=== PATIENT | female | born 1985 | race American Indian/Alaskan Native ===

== ENCOUNTER 2018-07-30 09:15 | Emergency (ER) | payer SELFPAY ==
[2018-07-30 10:31] LABS: BUN/Creatinine Ratio 20; Blood Urea Nitrogen 16 mg/dL (7-17); Calcium 9.3 mg/dL (8.4-10.2); Hemolysis Index 7
[2018-07-30 10:34] LABS: Basophils % (Auto) 0.4 % (0.0-1.8); Eosinophils # (Auto) 0.3 K/mm3 (0.0-0.4); Eosinophils % (Auto) 2.7 % (0.0-4.3); Hematocrit 38.5 % (30.3-42.9); Hemoglobin 12.7 gm/dl (10.1-14.3); Lymphocytes # (Auto) 2.8 K/mm3 (1.2-5.4); Lymphocytes % (Auto) 23.7 % (13.4-35.0); Mean Corpuscular HGB Conc 33 % (30-34); Mean Corpuscular Volume 92 fl (79-97); Monocytes # (Auto) 0.8 K/mm3 (0.0-0.8); Monocytes % (Auto) 6.4 % (0.0-7.3); Platelet Count 280 K/mm3 (140-440); Red Blood Count 4.19 M/mm3 (3.65-5.03); Red Cell Distribution Width 13.2 % (13.2-15.2)
[2018-07-30 10:38] LABS: Bacteria,Urine 2+ /HPF (Negative); Bilirubin,Urine NEG (Negative); Blood,Urine MOD (Negative); Color,Urine Yellow (Yellow); Mucus,Urine 1+ /HPF; Protein,Urine <15 mg/dL mg/dL (Negative); Urobilinogen,Urine < 2.0 mg/dL (<2.0)
[2018-07-30] MEDS ORDERED: TORADOL IV ONE (11:23)
[2018-07-30] MEDS ORDERED: XYLOCAINE CARDIAC IV ONE (11:23)
[2018-07-30] MEDS ORDERED: DILAUDID IV ONE (11:23)
[2018-07-30] MEDS ORDERED: NACL 0.9% 1000 ML 1,000 ML IV ONE (11:23)
[2018-07-30] MEDS ORDERED: ROCEPHIN 1,000 MG in NACL 0.9% 50 ML IV STA (11:23)
--- NOTE | 2018-07-30 11:25 | Emergency Department Report ---
ED General Adult HPI - General Chief complaint: Abdominal Pain Stated complaint: LT SIDE PAIN Time Seen by Provider: 07/30/18 11:04 Source: patient Mode of arrival: Ambulatory Limitations: No Limitations - History of Present Illness Initial comments: This is a 33-year-old female who is not known to this provider previously. In the past, the patient has seen Dr. Wm Robin, of [place] [facility]. Her past medical history includes kidney stone, history of left-sided stent, stent removal September,, and irregular menstruation. She presents to the em ergency room with complaint of nontraumatic left-sided flank pain, which radius down to her suprapubic region. There is urinary pressure, but no dysuria. There is nausea, but no vomiting. The patient denies fevers, denies chills. She denies hematemesis, bright red blood per rectum. Patient reports that symptoms today feel similar to prior episodes of nephrolithiasis. Patient denies headache, neck pain, chest pain, extremity weakness, numbness, hematemesis, bright red blood per rectum. -: Gradual Location: abdomen Radiation: periumbillical, flank Severity scale (0 -10): 8 Quality: aching Consistency: intermittent Improves with: medication, rest Worsens with: movement Associated Symptoms: denies: confusion, chest pain, cough, diaphoresis, fever/chills, headaches, loss of appetite, malaise, rash, seizure, shortness of breath, syncope, weakness - Related Data Previous Rx's Medication Instructions Recorded Last Taken Type Acetaminophen [Tylenol Arthritis] 650 mg PO Q6HR PRN #30 tablet.er 07/30/18 Unknown Rx Ibuprofen [Motrin] 600 mg PO Q8H PRN #30 tablet 07/30/18 Unknown Rx Metoclopramide [Reglan] 10 mg PO Q6HR PRN #15 tab 07/30/18 Unknown Rx levoFLOXacin [Levaquin] 750 mg PO QDAY #10 tablet 07/30/18 Unknown Rx Allergies Allergy/AdvReac Type Severity Reaction Status Date / Time eggs Allergy Hives Uncoded 07/30/18 09:23 peanuts Allergy Hives Uncoded 07/30/18 09:23 ED Review of Systems ROS: Stated complaint: LT SIDE PAIN Other details as noted in HPI Constitutional: malaise. denies: fever Eyes: denies: vision change ENT: denies: epistaxis Respiratory: denies: cough Cardiovascular: denies: chest pain Gastrointestinal: abdominal pain, nausea. denies: vomiting Genitourinary: frequency. denies: urgency, dysuria Musculoskeletal: back pain Skin: denies: lesions Neurological: denies: weakness Psychiatric: denies: anxiety ED Past Medical Hx - Past Medical History Previous Medical History?: Yes Hx Kidney Stones: Yes (stent x1, L kidney 2018) Additional medical history: irreg cycles - Surgical History Past Surgical History?: Yes Additional Surgical History: L renal stent x1, 2018 - Social History Smoking Status: Current Every Day Smoker Substance Use Type: None - Medications Home Medications: Home Medications Medication Instructions Recorded Confirmed Last Taken Type Acetaminophen [Tylenol Arthritis] 650 mg PO Q6HR PRN #30 tablet.er 07/30/18 Unknown Rx Ibuprofen [Motrin] 600 mg PO Q8H PRN #30 tablet 07/30/18 Unknown Rx Metoclopramide [Reglan] 10 mg PO Q6HR PRN #15 tab 07/30/18 Unknown Rx levoFLOXacin [Levaquin] 750 mg PO QDAY #10 tablet 07/30/18 Unknown Rx ED Physical Exam - General Limitations: No Limitations General appearance: alert, obese - Head Head exam: Present: atraumatic, normocephalic - Eye Eye exam: Present: normal appearance, EOMI Pupils: Absent: miosis - ENT ENT exam: Present: normal exam, normal orophraynx, mucous membranes moist, normal external ear exam - Neck Neck exam: Present: normal inspection, full ROM. Absent: tenderness - Respiratory Respiratory exam: Present: normal lung sounds bilaterally. Absent: respiratory distress, wheezes, rales, rhonchi, stridor, chest wall tenderness - Cardiovascular Cardiovascular Exam: Present: regular rate, normal rhythm, normal heart sounds. Absent: bradycardia, tachycardia, irregular rhythm, systolic murmur, diastolic murmur, rubs, gallop - GI/Abdominal GI/Abdominal exam: Present: soft, tenderness, other (is left flank tenderness. There is left CVA tenderness). Absent: distended, guarding, rebound, rigid, pulsatile mass - Extremities Exam Extremities exam: Present: normal inspection, full ROM, other (2+ pulses noted in the bilateral upper, lower extremities. Compartments soft. No long bony tenderness. The pelvis is stable.). Absent: pedal edema, joint swelling, calf tenderness - Back Exam Back exam: Present: normal inspection, full ROM, CVA tenderness (L). Absent: tenderness, CVA tenderness (R), paraspinal tenderness, vertebral tenderness - Neurological Exam Neurological exam: Present: alert, oriented X3, CN II-XII intact, normal gait, other (Extraocular movements intact. Tongue midline. No facial droop. Facial sensation intact to light touch in the V1, V2, V3 distribution bilaterally. 5 and 5 strength in 4 extremities.. Sensation is intact to light touch in 4 extremities.). Absent: motor sensory deficit - Psychiatric Psychiatric exam: Present: normal affect, normal mood - Skin Skin exam: Present: warm, dry, intact, normal color. Absent: rash ED Course Vital Signs 07/30/18 09:23 Temperature 97.9 F Pulse Rate 82 Respiratory 18 Rate Blood Pressure 110/73 O2 Sat by Pulse 100 Oximetry - Reevaluation(s) Reevaluation #1: 07/30/18 11:52 Differential diagnosis, including but not limited to: Pyelonephritis, mild, nephrolithiasis, passed renal stone Assessment and plan: A 33-year-old female, afebrile, with reassuring vital signs, tolerating liquid feeds, with history of kidney stones, with left flank pain, suprapubic pressure, urinary hesitancy, 2+ bacteria, and CT scan of the abdomen and pelvis demonstrated no evidence of surgical nephrolithiasis. No acute surgical process is identified and the CT scan. The patient is currently tolerating liquid feeds. Patient may have a mild pyelonephritis, versus recently passed kidney stone. Patient is suitable for a trial of oral outpatient antibiotics and outpatient follow-up. Her pain will be treated in the emergency room with Toradol, hydromorphone, intravenous lidocaine, and she will be given ceftriaxone. Cultures have been ordered, and she will be discharg ed with pain medication, nausea medication, instructions to follow up. Reevaluation #2: 07/30/18 11:56 Consulted the [place] prescription monitoring database, and it indicates patient has not received controlled substances since 09/07/2017 Reevaluation #3: 07/30/18 12:35 Patient feeling improved. Tolerating liquid feeds. Patient was instructed to download the "good Rx" application on her side phone, and I taught the patient how to use it. Patient also given an affordable prescription card. Patient instructed that she either has an early kidney infection, likely, or has passed a kidney stone. She was instructed to take her pain medication, antibiotics, and to follow up closely. The patient has endorsed understanding. ED Medical Decision Making - Lab Data Result diagrams: 07/30/18 09:45 07/30/18 09:45 Vital Signs 07/30/18 09:23 Temperature 97.9 F Pulse Rate 82 Respiratory 18 Rate Blood Pressure 110/73 O2 Sat by Pulse 100 Oximetry Lab Results 07/30/18 07/30/18 07/30/18 Range/Units 09:45 09:45 09:45 WBC 11.7 H (4.5-11.0) K/mm3 RBC 4.19 (3.65-5.03) M/mm3 Hgb 12.7 (10.1-14.3) gm/dl Hct 38.5 (30.3-42.9) % MCV 92 (79-97) fl MCH 30 (28-32) pg MCHC 33 (30-34) % RDW 13.2 (13.2-15.2) % Plt Count 280 (140-440) K/mm3 Lymph % (Auto) 23.7 (13.4-35.0) % Tama % (Auto) 6.4 (0.0-7.3) % Eos % (Auto) 2.7 (0.0-4.3) % Baso % (Auto) 0.4 (0.0-1.8) % Lymph # 2.8 (1.2-5.4) K/mm3 Tama # 0.8 (0.0-0.8) K/mm3 Eos # 0.3 (0.0-0.4) K/mm3 Baso # 0.0 (0.0-0.1) K/mm3 Seg Neutrophils % 66.8 (40.0-70.0) % Seg Neutrophils # 7.8 H (1.8-7.7) K/mm3 Sodium 139 (137-145) mmol/L Potassium 4.2 (3.6-5.0) mmol/L Chloride 103.4 (98-107) mmol/L Carbon Dioxide 25 (22-30) mmol/L Anion Gap 15 mmol/L BUN 16 (7-17) mg/dL Creatinine 0.8 (0.7-1.2) mg/dL Estimated GFR > 60 ml/min BUN/Creatinine Ratio 20 % Glucose 71 (65-100) mg/dL Calcium 9.3 (8.4-10.2) mg/dL HCG, Qual (Negative) Urine Color Yellow (Yellow) Urine Turbidity Slightly-cloudy (Clear) Urine pH 6.0 (5.0-7.0) Ur Specific [place] 1.021 (1.003-1.030) Urine Protein <15 mg/dl (Negative) mg/dL Urine Glucose (UA) Neg (Negative) mg/dL Urine Ketones Neg (Negative) mg/dL Urine Blood Mod (Negative) Urine Nitrite Neg (Negative) Urine Bilirubin Neg (Negative) Urine Urobilinogen < 2.0 (<2.0) mg/dL Ur Leukocyte Esterase Neg (Negative) Urine WBC (Auto) 4.0 (0.0-6.0) /HPF Urine RBC (Auto) 18.0 (0.0-6.0) /HPF U Epithel Cells (Auto) 2.0 (0-13.0) /HPF Urine Bacteria (Auto) 2+ (Negative) /HPF Urine Mucus 1+ /HPF 07/30/18 Range/Units 09:45 WBC (4.5-11.0) K/mm3 RBC (3.65-5.03) M/mm3 Hgb (10.1-14.3) gm/dl Hct (30.3-42.9) % MCV (79-97) fl MCH (28-32) pg MCHC (30-34) % RDW (13.2-15.2) % Plt Count (140-440) K/mm3 Lymph % (Auto) (13.4-35.0) % Tama % (Auto) (0.0-7.3) % Eos % (Auto) (0.0-4.3) % Baso % (Auto) (0.0-1.8) % Lymph # (1.2-5.4) K/mm3 Tama # (0.0-0.8) K/mm3 Eos # (0.0-0.4) K/mm3 Baso # (0.0-0.1) K/mm3 Seg Neutrophils % (40.0-70.0) % Seg Neutrophils # (1.8-7.7) K/mm3 Sodium (137-145) mmol/L Potassium (3.6-5.0) mmol/L Chloride (98-107) mmol/L Carbon Dioxide (22-30) mmol/L Anion Gap mmol/L BUN (7-17) mg/dL Creatinine (0.7-1.2) mg/dL Estimated GFR ml/min BUN/Creatinine Ratio % Glucose (65-100) mg/dL Calcium (8.4-10.2) mg/dL HCG, Qual Negative (Negative) Urine Color (Yellow) Urine Turbidity (Clear) Urine pH (5.0-7.0) Ur Specific [place] (1.003-1.030) Urine Protein (Negative) mg/dL Urine Glucose (UA) (Negative) mg/dL Urine Ketones (Negative) mg/dL Urine Blood (Negative) Urine Nitrite (Negative) Urine Bilirubin (Negative) Urine Urobilinogen (<2.0) mg/dL Ur Leukocyte Esterase (Negative) Urine WBC (Auto) (0.0-6.0) /HPF Urine RBC (Auto) (0.0-6.0) /HPF U Epithel Cells (Auto) (0-13.0) /HPF Urine Bacteria (Auto) (Negative) /HPF Urine Mucus /HPF - Radiology Data Radiology results: report reviewed, image reviewed Referring Physician: SHERLYN REYNOLDS Patient Name: FREDERICK KRAUS Date of : 1985 Sex: Female Report Date: 2018-07-30 Report Status: [place] [address] Cat Scan Report Signed Patient: FREDERICK KRAUS MR#: [id number] : 1985 Acct:[id number] Age/Sex: 33 / F ADM Date: 07/30/18 Loc: ED Attending Dr: Ordering Physician: SHERLYN REYNOLDS MD Date of Service: 07/30/18 Procedure(s): CT abdomen pelvis wo con Accession Number(s): [id number] cc: SHERLYN REYNOLDS MD FINAL REPORT EXAM: CT ABD AND PELVIS WO CONTRAST HISTORY: LEFT FLANK APIN; H/O STONES TECHNIQUE: CT of the abdomen and pelvis with IV contrast. Coronal and sagittal reconstructed imaging provided. PRIORS: None currently available. FINDINGS: ABDOMEN: Kidneys: 1.8 cm low-attenuation cortical lesion with internal punctate calcification measures 3.2 mm in the mid left kidney. 2.8 mm stone mid left kidney. 3.3 mm stone mid left kidney. 3.1 mm stone mid to inferior left ki dney. Punctate 1 mm stone inferior left kidney. No hydronephrosis. No left ureteral stone. Right kidney is unremarkable without hydronephrosis or nephroureteral stone. Liver, gallbladder, spleen, stomach, pancreas, and adrenals are unremarkable. There is no abdominal aortic aneurysm. IVC is unremarkable. There is no periaortic or retroperitoneal adenopathy or mass. [id number] stool. No wall thickening or inflammatory changes. Terminal ileum is unremarkable. Prior appendectomy. Small bowel loops are unremarkable. No obstructive pattern. Mesentery is unremarkable. No free air. No free fluid. PELVIS: Limited CT images of the uterus are unremarkable. Bladder is unremarkable. No wall thickening. No stone. There is no pelvic mass or adenopathy. Inguinal regions are unremarkable. Bones: No suspicious osseous lesions on this limited examination of the skeleton. Metastatic disease better evaluated with bone scan. Degenerative changes are in the spine. IMPRESSION: Mildly complex left renal cysts. Bosniak 2. Punctate left renal stones. No hydronephrosis. No ureteral stones. Transcribed By: TYM Dictated By: MIHAI KINNEY MD Electronically Authenticated By: MIHAI KINNEY MD Signed D ate/Time: 07/30/18 1144 Critical care attestation.: If time is entered above; I have spent that time in minutes in the direct care of this critically ill patient, excluding procedure time. ED Disposition Clinical Impression: Left flank pain Disposition: DC-01 TO HOME OR SELFCARE Is pt being admited?: No Does the pt Need Aspirin: No Condition: Stable Instructions: Acute Pyelonephritis (ED), Flank Pain (ED) Additional Instructions: Cultures were sent today, and results will be available in the next 3-5 days. Please have a physician contact the medical records department to obtain culture results. Take pain medication, nausea medication and antibiotics as needed/directed. Do not drive, consume alcohol, or make important decisions when taking these medications. Please follow up with her physician within the next 7-10 days for recheck. Drink plenty of fluids. Return to the emergency room right away with new pain, worsened pain, migration of pain, productive vomiting, change in mental status, confusion, inability to speak, inability to breathe, new, worsening or different symptoms. If not able to secure an appointment with an outpatient primary care physician, patient may follow-up with an urgent care center, or present to this emergency room for a repeat checkup/evaluation. Prescriptions: Acetaminophen [Tylenol Arthritis] 650 mg PO Q6HR PRN #30 tablet.er PRN Reason: Pain Ibuprofen [Motrin] 600 mg PO Q8H PRN #30 tablet PRN Reason: Pain levoFLOXacin [Levaquin] 750 mg PO QDAY #10 tablet Metoclopramide [Reglan] 10 mg PO Q6HR PRN #15 tab PRN Reason: Nausea Referrals: ROCKY PEMBERTON MD [Primary Care Provider] - 7-10 days WM CAREY MD [Referring] - 7-10 days
--- NOTE | 2018-07-30 11:44 | Cat Scan Report ---
FINAL REPORT EXAM: CT ABD AND PELVIS WO CONTRAST HISTORY: LEFT FLANK APIN; H/O STONES TECHNIQUE: CT of the abdomen and pelvis with IV contrast. Coronal and sagittal reconstructed imaging provided. PRIORS: None currently available. FINDINGS: ABDOMEN: Kidneys: 1.8 cm low-attenuation cortical lesion with internal punctate calcification measures 3.2 mm in the mid left kidney. 2.8 mm stone mid left kidney. 3.3 mm stone mid left kidney. 3.1 mm stone mid to inferior left kidney. Punctate 1 mm stone inferior left kidney. No hydronephrosis. No left uretera l stone. Right kidney is unremarkable without hydronephrosis or nephroureteral stone. Liver, gallbladder, spleen, stomach, pancreas, and adrenals are unremarkable. There is no abdominal aortic aneurysm. IVC is unremarkable. There is no periaortic or retroperitoneal adenopathy or mass. [id number] stool. No wall thickening or inflammatory changes. Terminal ileum is unremarkable. Prior appendectomy. Small bowel loops are unremarkable. No obstructive pattern. Mesentery is unremarkable. No free air. No free fluid. PELVIS: Limited CT images of the uterus are unremarkable. Bladder is unremarkable. No wall thickening. No stone. There is no pelvic mass or adenopathy. Inguinal regions are unremarkable. Bones: No suspicious osseous lesions on this limited examination of the skeleton. Metastatic disease better evaluated with bone scan. Degenerative changes are in the spine. IMPRESSION: Mildly complex left renal cysts. Bosniak 2. Punctate left renal stones. No hydronephrosis. No ureteral stones.
[2018-07-30] MEDS ORDERED: ZOFRAN ONE (11:47)
[2018-07-30] MEDS ORDERED: ZOFRAN IV ONE (11:48)
[2018-07-30 12:44] VITALS: BP 103/48
== END 2018-07-30 13:25 | disposition home or self-care (01) ==
LOC: ED 09:15
DX: R10.9 Unspecified abdominal pain (principal); F17.200 Nicotine dependence, unspecified, uncomplicated
CPT/HCPCS: 36415; 74176; 80048; 81001; 84703; 85025; 87086; 96365; 96375; 99284; J0696; J1170; J1885; J2001; J2405; J7030

== ENCOUNTER 2019-02-12 08:52 | Emergency (ER) | payer OTHER ==
--- NOTE | 2019-02-12 09:09 | Emergency Department Report ---
- General Chief Complaint: Upper Respiratory Infection Stated Complaint: SOB/COUGH/BLOOD IN MUCUS Time Seen by Provider: 02/12/19 09:01 Source: patient Mode of arrival: Ambulatory Limitations: No Limitations - History of Present Illness Initial Comments: She has a 33-year-old female that presents emergency room with complaints of cough 3 weeks. Patient denies fever and chills. Patient states last night she had blood streaking in her nasal mucous times 1. Patient states she is has a sputum production with yellow sputum. Patient states at times she is short of breath. She denies chest pain. Patient denies fever and chills. Patient denies abdominal pain. Patient denies headache. Patient denies neck pain. Patient states her last menstrual period was in October and that is normal for her because she has irregular periods MD Complaint: cough, rhinorrhea, nasal congestion -: Sudden Severity: severe Consistency: constant Improves With: NSAID, cough suppressant, rest Worsens With: activity, deep breaths Associated Symptoms: rhinorrhea, nasal congestion, cough, shortness of breath. denies: fever, chills, myalgias, diaphoresis, headache, sore throat, stiff neck, chest pain, abdominal pain, nausea, vomiting, diarrhea, dysuria, rash, confusion, right sweats, weight loss, epistaxis, hoarseness, ear pain Treatments Prior to Arrival: none - Related Data Previous Rx's Medication Instructions Recorded Last Taken Type Acetaminophen [Tylenol Arthritis] 650 mg PO Q6HR PRN #30 tablet.er 07/30/18 Unknown Rx Ibuprofen [Motrin] 600 mg PO Q8H PRN #30 tablet 07/30/18 Unknown Rx Metoclopramide [Reglan] 10 mg PO Q6HR PRN #15 tab 07/30/18 Unknown Rx levoFLOXacin [Levaquin] 750 mg PO QDAY #10 tablet 07/30/18 Unknown Rx Benzonatate [Tessalon Perles] 100 mg PO Q8HR PRN #10 capsule 02/12/19 Unknown Rx Doxycycline Hyclate [Doxycycline 100 mg PO Q12HR 10 Days #20 tab 02/12/19 Unknown Rx Hyclate TAB] methylPREDNISolone [Medrol 4MG 4 mg PO DAILY 6 Days #1 tab.ds.pk 02/12/19 Unknown Rx DOSEPAK (21 tabs)] Allergies Allergy/AdvReac Type Severity Reaction Status Date / Time eggs Allergy Hives Uncoded 07/30/18 09:23 peanuts Allergy Hives Uncoded 07/30/18 09:23 ED Review of Systems ROS: Stated complaint: SOB/COUGH/BLOOD IN MUCUS Other details as noted in HPI Constitutional: denies: chills, fever Eyes: denies: eye pain, eye discharge, vision change ENT: denies: ear pain, throat pain Respiratory: cough, shortness of breath. denies: wheezing Cardiovascular: denies: chest pain, palpitations Endocrine: no symptoms reported Gastrointestinal: denies: abdominal pain, nausea, diarrhea Genitourinary: denies: urgency, dysuria, discharge Musculoskeletal: denies: back pain, joint swelling, arthralgia Skin: denies: rash, lesions Neurological: denies: headache, weakness, paresthesias Psychiatric: denies: anxiety, depression Hematological/Lymphatic: denies: easy bleeding, easy bruising ED Past Medical Hx - Past Medical History Previous Medical History?: Yes Hx Kidney Stones: Yes (stent x1, L kidney 2018) Additional medical history: irreg cycles - Surgical History Past Surgical History?: Yes Additional Surgical History: L renal stent x1, 2017 - Family History Family history: no significant - Social History Smoking Status: Current Every Day Smoker Substance Use Type: None - Medications Home Medications: Home Medications Medication Instructions Recorded Confirmed Last Taken Type Acetaminophen [Tylenol Arthritis] 650 mg PO Q6HR PRN #30 tablet.er 07/30/18 Unknown Rx Ibuprofen [Motrin] 600 mg PO Q8H PRN #30 tablet 07/30/18 Unknown Rx Metoclopramide [Reglan] 10 mg PO Q6HR PRN #15 tab 07/30/18 Unknown Rx levoFLOXacin [Levaquin] 750 mg PO QDAY #10 tablet 07/30/18 Unknown Rx Benzonatate [Tessalon Perles] 100 mg PO Q8HR PRN #10 capsule 02/12/19 Unknown Rx Doxycycline Hyclate [Doxycycline 100 mg PO Q12HR 10 Days #20 tab 02/12/19 Unknown Rx Hyclate TAB] methylPREDNISolone [Medrol 4MG 4 mg PO DAILY 6 Days #1 tab.ds.pk 02/12/19 Unknown Rx DOSEPAK (21 tabs)] ED Physical Exam - General Limitations: No Limitations General appearance: alert, in no apparent distress - Head Head exam: Present: atraumatic, normocephalic - Eye Eye exam: Present: normal appearance, PERRL Pupils: Present: normal accommodation - ENT ENT exam: Present: mucous membranes moist - Neck Neck exam: Present: normal inspection - Respiratory Respiratory exam: Present: normal lung sounds bilaterally. Absent: respiratory distress - Cardiovascular Cardiovascular Exam: Present: regular rate, normal rhythm. Absent: systolic murmur, diastolic murmur, rubs, gallop - GI/Abdominal GI/Abdominal exam: Present: soft, normal bowel sounds - Extremities Exam Extremities exam: Present: normal inspection - Back Exam Back exam: Present: normal inspection - Neurological Exam Neurological exam: Present: alert, oriented X3 - Psychiatric Psychiatric exam: Present: normal affect, normal mood - Skin Skin exam: Present: warm, dry, intact, normal color. Absent: rash ED Course Vital Signs 02/12/19 08:57 Temperature 97.5 F L Pulse Rate 110 H Respiratory 18 Rate Blood Pressure 109/71 O2 Sat by Pulse 100 Oximetry - Reevaluation(s) Reevaluation #1: I discussed all results with patient. I discussed plan of care outpatient. Patient agrees to plan of care. Patient stable for discharge. Patient will be discharged home. Patient given discharge instructions. Patient voiced u nderstanding of all instructions. 02/12/19 10:15 ED Medical Decision Making - Lab Data Result diagrams: 02/12/19 09:22 02/12/19 09:22 - Radiology Data Radiology results: image reviewed interpreted by me: Peribronchial cuffing noted on x-ray - Medical Decision Making Patient is a 33-year-old female Emergency room with cough 3 weeks. Patient had mucus production. Patient had blood streaking to her mucus last night. Patient's clinical findings consistent with bronchitis and upper respiratory infection. Patient given antibiotics and fluids as well as Solu-Medrol in the ER. Patient discharged home with antibiotic and steroid treatment. Patient's labs essentially unremarkable. - Differential Diagnosis bronchitis. URI. Cough. SOB Critical care attestation.: If time is entered above; I have spent that time in minutes in the direct care of this critically ill patient, excluding procedure time. ED Disposition Clinical Impression: Cough, SOB (shortness of breath), Bronchitis Disposition: DC-01 TO HOME OR SELFCARE Is pt being admited?: No Does the pt Need Aspirin: No Condition: Stable Instructions: Acute Bronchitis (ED) Additional Instructions: Patient to follow-up with primary care in 2-3 days. Patient to return to ER if condition worsens. Patient to rest. Patient to take meds as directed. Patient to take Tylenol or ibuprofen when necessary for pain, fever. Prescriptions: Doxycycline Hyclate [Doxycycline Hyclate TAB] 100 mg PO Q12HR 10 Days #20 tab methylPREDNISolone [Medrol 4MG DOSEPAK (21 tabs)] 4 mg PO DAILY 6 Days #1 tab.ds.pk Benzonatate [Tessalon Perles] 100 mg PO Q8HR PRN #10 capsule PRN Reason: Cough Referrals: PRIMARY CARE, [Primary Care Provider] - 2-3 Days Time of Disposition: 10:15
[2019-02-12 09:31] LABS: Basophils % (Auto) 0.3 % (0.0-1.8); Eosinophils # (Auto) 0.4 K/mm3 (0.0-0.4); Eosinophils % (Auto) 3.8 % (0.0-4.3); Hematocrit 43.3 % (30.3-42.9); Hemoglobin 14.7 gm/dl (10.1-14.3); Lymphocytes # (Auto) 2.8 K/mm3 (1.2-5.4); Lymphocytes % (Auto) 25.6 % (13.4-35.0); Mean Corpuscular HGB Conc 34 % (30-34); Mean Corpuscular Volume 92 fl (79-97); Monocytes # (Auto) 0.8 K/mm3 (0.0-0.8); Monocytes % (Auto) 7.6 % (0.0-7.3); Platelet Count 225 K/mm3 (140-440); Red Cell Distribution Width 13.8 % (13.2-15.2)
[2019-02-12 09:54] LABS: Alanine Aminotransferase 14 units/L (7-56); Albumin 3.2 g/dL (3.9-5); BUN/Creatinine Ratio 14; Blood Urea Nitrogen 13 mg/dL (7-17); Calcium 8.4 mg/dL (8.4-10.2); Hemolysis Index 30
[2019-02-12] MEDS ORDERED: NACL 0.9% 1000 ML 1,000 ML IV ONE (10:10)
[2019-02-12] MEDS ORDERED: ROCEPHIN/NS 1 GM/50 ML 1 GM/50 ML BAG IV ONE (10:10)
[2019-02-12] MEDS ORDERED: SOLU-Medrol IV ONE (10:10)
--- NOTE | 2019-02-12 10:23 | XRay Report ---
CHEST 2 VIEWS INDICATION / CLINICAL INFORMATION: cough. COMPARISON: None available. FINDINGS: SUPPORT DEVICES: None. HEART / MEDIASTINUM: No significant abnormality. LUNGS / PLEURA: No significant pulmonary or pleural abnormality. No pneumothorax. ADDITIONAL FINDINGS: No significant additional findings. IMPRESSION: 1. No significant abnormality. Signer Name: Sarai Shaw MD Signed: 02/12/2019 10:18 AM Workstation Name: [id number]
[2019-02-12 10:44] VITALS: BP 110/70
== END 2019-02-12 10:43 | disposition home or self-care (01) ==
LOC: ED 08:52
DX: J40 Bronchitis, not specified as acute or chronic (principal); F17.200 Nicotine dependence, unspecified, uncomplicated; Z98.890 Other specified postprocedural states; Z79.899 Other long term (current) drug therapy; Z91.012 Allergy to eggs; Z91.010 Allergy to peanuts
CPT/HCPCS: 36415; 71046; 80053; 84703; 85025; 96365; 96375; 99284; J0696; J2930

== ENCOUNTER 2019-06-07 08:57 | Emergency (ER) | payer OTHER ==
[2019-06-07 09:02] VITALS: BP 127/68
--- NOTE | 2019-06-07 11:11 | XRay Report ---
CHEST 2 VIEWS INDICATION / CLINICAL INFORMATION: Productive cough with fever. Flulike symptoms for 2 weeks. COMPARISON: 02/12/2019. FINDINGS: SUPPORT DEVICES: None. HEART / MEDIASTINUM: The heart size and pulmonary vasculature are normal. LUNGS / PLEURA: No significant pulmonary or pleural abnormality. No pneumothorax. ADDITIONAL FINDINGS: No significant additional findings. IMPRESSION: No acute abnormality or significant change. There is no evidence of pneumonia. Signer Name: Lazaro Aceves MD Signed: 06/07/2019 11:06 AM Workstation Name: [id number]
--- NOTE | 2019-06-07 12:53 | Emergency Department Report ---
ED General Adult HPI - General Chief complaint: Upper Respiratory Infection Stated complaint: CHEST PAIN/COLD SX Time Seen by Provider: 06/07/19 10:40 Source: patient Mode of arrival: Ambulatory Limitations: No Limitations - History of Present Illness Initial comments: Patient is a 34-year-old -[place] female who is presenting with cough cold congestion and sore throat. Patient states symptoms been present for approximately a week and a half. Patient's is taking a Z-Javier and is on day #4. Patient states symptoms are not improving. She has associated fevers chills. Patient is a smoker but has not been able to smoke secondary to coughing. Patient states that the chest congestion soreness in the chest and throat are a 5 out of 10 in severity. She denies nausea vomiting diarrhea or neck stiffness at this time. - Related Data Previous Rx's Medication Instructions Recorded Last Taken Type Acetaminophen [Tylenol Arthritis] 650 mg PO Q6HR PRN #30 tablet.er 07/30/18 Unknown Rx Ibuprofen [Motrin] 600 mg PO Q8H PRN #30 tablet 07/30/18 Unknown Rx Metoclopramide [Reglan] 10 mg PO Q6HR PRN #15 tab 07/30/18 Unknown Rx levoFLOXacin [Levaquin] 750 mg PO QDAY #10 tablet 07/30/18 Unknown Rx Benzonatate [Tessalon Perles] 100 mg PO Q8HR PRN #10 capsule 02/12/19 Unknown Rx Doxycycline Hyclate [Doxycycline 100 mg PO Q12HR 10 Days #20 tab 02/12/19 Unknown Rx Hyclate TAB] methylPREDNISolone [Medrol 4MG 4 mg PO DAILY 6 Days #1 tab.ds.pk 02/12/19 Unknown Rx DOSEPAK (21 tabs)] Benzonatate [Tessalon Perles] 100 mg PO Q8HR #10 capsule 06/07/19 Unknown Rx DOXYCYCLINE Hyclate [Vibramycin 100 mg PO Q12HR #14 capsule 06/07/19 Unknown Rx CAP] Fluticasone [Flonase] 1 spray NS QDAY #1 bottle 06/07/19 Unknown Rx predniSONE [Deltasone] 20 mg PO QDAY #5 tab 06/07/19 Unknown Rx Allergies Allergy/AdvReac Type Severity Reaction Status Date / Time eggs Allergy Hives Uncoded 07/30/18 09:23 peanuts Allergy Hives Uncoded 07/30/18 09:23 ED Review of Systems ROS: Stated complaint: CHEST PAIN/COLD SX Other details as noted in HPI Comment: All other systems reviewed and negative ED Past Medical Hx - Past Medical History Previous Medical History?: Yes Hx Kidney Stones: Yes (stent x1, L kidney 2018) Additional medical history: irreg cycles - Surgical History Past Surgical History?: Yes Additional Surgical History: L renal stent x1, 2018 - Social History Smoking Status: Current Every Day Smoker Substance Use Type: None - Medications Home Medications: Home Medications Medication Instructions Recorded Confirmed Last Taken Type Acetaminophen [Tylenol Arthritis] 650 mg PO Q6HR PRN #30 tablet.er 07/30/18 Unknown Rx Ibuprofen [Motrin] 600 mg PO Q8H PRN #30 tablet 07/30/18 Unknown Rx Metoclopramide [Reglan] 10 mg PO Q6HR PRN #15 tab 07/30/18 Unknown Rx levoFLOXacin [Levaquin] 750 mg PO QDAY #10 tablet 07/30/18 Unknown Rx Benzonatate [Tessalon Perles] 100 mg PO Q8HR PRN #10 capsule 02/12/19 Unknown Rx Doxycycline Hyclate [Doxycycline 100 mg PO Q12HR 10 Days #20 tab 02/12/19 Unknown Rx Hyclate TAB] methylPREDNISolone [Medrol 4MG 4 mg PO DAILY 6 Days #1 tab.ds.pk 02/12/19 Unknown Rx DOSEPAK (21 tabs)] Benzonatate [Tessalon Perles] 100 mg PO Q8HR #10 capsule 06/07/19 Unknown Rx DOXYCYCLINE Hyclate [Vibramycin 100 mg PO Q12HR #14 capsule 06/07/19 Unknown Rx CAP] Fluticasone [Flonase] 1 spray NS QDAY #1 bottle 06/07/19 Unknown Rx predniSONE [Deltasone] 20 mg PO QDAY #5 tab 06/07/19 Unknown Rx ED Physical Exam - General Limitations: No Limitations General appearance: alert, in no apparent distress - Head Head exam: Present: atraumatic, normocephalic - Eye Eye exam: Present: normal appearance, PERRL, EOMI - ENT ENT exam: Present: mucous membranes moist. Absent: normal orophraynx (tonsillar erythema with 2 small exudates on the left tonsil.) - Neck Neck exam: Present: normal inspection. Absent: lymphadenopathy - Respiratory Respiratory exam: Present: normal lung sounds bilaterally, rhonchi. Absent: respiratory distress, wheezes, rales - Cardiovascular Cardiovascular Exam: Present: regular rate, normal rhythm. Absent: systolic murmur, diastolic murmur, rubs, gallop - GI/Abdominal GI/Abdominal exam: Present: soft, normal bowel sounds. Absent: distended, tenderness, guarding, rebound - Extremities Exam Extremities exam: Present: normal inspection - Back Exam Back exam: Present: normal inspection - Neurological Exam Neurological exam: Present: alert, oriented X3 - Psychiatric Psychiatric exam: Present: normal affect, normal mood - Skin Skin exam: Present: warm, dry, intact, normal color. Absent: rash ED Course Vital Signs 06/07/19 09:00 Temperature 99.0 F Pulse Rate 83 Respiratory 17 Rate Blood Pressure 127/68 O2 Sat by Pulse 100 Oximetry ED Medical Decision Making - Lab Data Lab Results 06/07/19 Range/Units 11:21 Monoscreen Negative (Negative) - Radiology Data Chest x-ray shows no acute infiltrate - Medical Decision Making Patient is a 34-year-old female who is on antibiotics currently complaining of a week and a half of cough cold congestion sore throat. Hi the patient's differential is pneumonia as well as mononucleosis. X-ray was negative for acute infiltrate. Patient likely with acute bronchitis of prolonged duration in a smoker. to be given medication for symptomatic relief as well as a Medrol Dosepak to help with the inflammatory changes of her lungs. Patient be discharged home. Critical care attestation.: If time is entered above; I have spent that time in minutes in the direct care of this critically ill patient, excluding procedure time. ED Disposition Clinical Impression: Acute bronchitis Qualifiers: Bronchitis organism: unspecified organism Qualified Code(s): J20.9 - Acute bronchitis, unspecified Disposition: - TO HOME OR SELFCARE Is pt being admited?: No Does the pt Need Aspirin: No Condition: Stable Instructions: Acute Bronchitis (ED) Referrals: PRIMARY CARE, [Primary Care Provider] - 3-5 Days Time of Disposition: 12:54
== END 2019-06-07 13:08 | disposition home or self-care (01) ==
LOC: ED 08:57
DX: J20.9 Acute bronchitis, unspecified (principal); F17.200 Nicotine dependence, unspecified, uncomplicated; Z87.442 Personal history of urinary calculi; Z98.890 Other specified postprocedural states; Z91.012 Allergy to eggs; Z91.010 Allergy to peanuts; Z79.899 Other long term (current) drug therapy
CPT/HCPCS: 36415; 71046; 86308

== ENCOUNTER 2019-08-09 18:21 | Emergency (ER) | payer OTHER ==
--- NOTE | 2019-08-09 18:46 | Emergency Department Report ---
Blank Doc - Documentation Documentation: 34-year-old female that presents with left flank/lower back pain. Was seen by PCP this morning and received Toradol with no relief. This initial assessment/diagnostic orders/clinical plan/treatment(s) is/are subject to change based on patient's health status, clinical progression and re- assessment by fellow clinical providers in the ED. Further treatment and workup at subsequent clinical providers discretion. Patient/guardians urged not to elope from the ED as their condition may be serious if not clinically assessed and managed. Initial orders include: 1- Patient sent to [facility] for further evaluation and treatm 2- UA
[2019-08-09 18:53] VITALS: BP 104/61
[2019-08-09 19:36] LABS: Bilirubin,Urine NEG (Negative); Blood,Urine NEG (Negative); Color,Urine Yellow (Yellow); Mucus,Urine 3+ /HPF; Protein,Urine <15 mg/dL mg/dL (Negative)
[2019-08-09 19:37] LABS: HCG Qualitative,Urine Negative (Negative)
[2019-08-09] MEDS ORDERED: KETOROLAC 30 MG/1 ML INJ IM ONE (23:04)
[2019-08-09] MEDS ORDERED: CYCLOBENZAPRINE 10 MG TAB PO ONE (23:04)
[2019-08-09] MEDS ORDERED: dexAMETHasone 20 MG/5 ML VIAL IM ONE (23:04)
--- NOTE | 2019-08-09 23:11 | Emergency Department Report ---
ED Back Pain/Injury HPI - General Chief Complaint: Back Pain/Injury Stated Complaint: BACK PAIN Time Seen by Provider: 08/09/19 18:44 Source: patient Limitations: No Limitations - History of Present Illness Initial Comments: Ms. Ramirez is a 34-year-old female that presents with left flank/lower back pain. Was seen by PCP this morning and received Toradol with no relief. She den ies dysuria ,no fever , no chills, no vaginal discharge or bleeding ,no n/v no hx of renal stones. pain is 7/10 exacerbated by movement ,relieved by toradol. pt denies fall or trauma, pt states she noted pain after bending and twisting this am. MD Complaint: back pain, back injury Onset/Timin -: days(s) Similar Symptoms Previously: Yes Place: work Radiation: left leg Severity: moderate Severity scale (0 -10): 5 Quality: sharp, aching Consistency: constant Improves With: medication Worsens With: movement Context: turning/twisting, bending Associated Symptoms: denies: confusion, weakness, numbness, difficulty walking, difficulty urinating, incontinence, constipation - Related Data Previous Rx's Medication Instructions Recorded Last Taken Type Acetaminophen [Tylenol Arthritis] 650 mg PO Q6HR PRN #30 tablet.er 07/30/18 Unknown Rx Ibuprofen [Motrin] 600 mg PO Q8H PRN #30 tablet 07/30/18 Unknown Rx Metoclopramide [Reglan] 10 mg PO Q6HR PRN #15 tab 07/30/18 Unknown Rx levoFLOXacin [Levaquin] 750 mg PO QDAY #10 tablet 07/30/18 Unknown Rx Benzonatate [Tessalon Perles] 100 mg PO Q8HR PRN #10 capsule 02/12/19 Unknown Rx Doxycycline Hyclate [Doxycycline 100 mg PO Q12HR 10 Days #20 tab 02/12/19 Unknown Rx Hyclate TAB] methylPREDNISolone [Medrol 4MG 4 mg PO DAILY 6 Days #1 tab.ds.pk 02/12/19 Unknown Rx DOSEPAK (21 tabs)] Benzonatate [Tessalon Perles] 100 mg PO Q8HR #10 capsule 06/07/19 Unknown Rx DOXYCYCLINE Hyclate [Vibramycin 100 mg PO Q12HR #14 capsule 06/07/19 Unknown Rx CAP] Fluticasone [Flonase] 1 spray NS QDAY #1 bottle 06/07/19 Unknown Rx predniSONE [Deltasone] 20 mg PO QDAY #5 tab 06/07/19 Unknown Rx Nitrofurantoin Mcduffie/M-Cryst 100 mg PO Q12HR 7 Days #14 capsule 08/10/19 Unknown Rx [Macrobid CAP] traMADoL [Ultram] 50 mg PO Q6HR PRN #12 tablet 08/10/19 Unknown Rx Allergies Allergy/AdvReac Type Severity Reaction Status Date / Time eggs Allergy Hives Uncoded 07/30/18 09:23 peanuts Allergy Hives Uncoded 07/30/18 09:23 ED Review of Systems ROS: Stated complaint: BACK PAIN Other details as noted in HPI Constitutional: denies: chills, fever Eyes: denies: eye pain, eye discharge, vision change ENT: denies: ear pain, throat pain Respiratory: denies: cough, shortness of breath, wheezing Cardiovascular: denies: chest pain, palpitations Endocrine: no symptoms reported Gastrointestinal: denies: abdominal pain, nausea, diarrhea Genitourinary: denies: urgency, dysuria, frequency, hematuria, discharge Musculoskeletal: back pain, myalgia Skin: denies: rash, lesions Neurological: denies: headache, weakness, paresthesias Psychiatric: denies: anxiety, depression Hematological/Lymphatic: denies: easy bleeding, easy bruising ED Past Medical Hx - Past Medical History Previous Medical History?: No Hx Kidney Stones: Yes (stent x1, L kidney 2018) Additional medical history: irreg cycles - Surgical History Past Surgical History?: No Additional Surgical History: L renal stent x1, 2017 - Social History Smoking Status: Never Smoker Substance Use Type: None - Medications Home Medications: Home Medications Medication Instructions Recorded Confirmed Last Taken Type Acetaminophen [Tylenol Arthritis] 650 mg PO Q6HR PRN #30 tablet.er 07/30/18 Unknown Rx Ibuprofen [Motrin] 600 mg PO Q8H PRN #30 tablet 07/30/18 Unknown Rx Metoclopramide [Reglan] 10 mg PO Q6HR PRN #15 tab 07/30/18 Unknown Rx levoFLOXacin [Levaquin] 750 mg PO QDAY #10 tablet 07/30/18 Unknown Rx Benzonatate [Tessalon Perles] 100 mg PO Q8HR PRN #10 capsule 02/12/19 Unknown Rx Doxycycline Hyclate [Doxycycline 100 mg PO Q12HR 10 Days #20 tab 02/12/19 Unknown Rx Hyclate TAB] methylPREDNISolone [Medrol 4MG 4 mg PO DAILY 6 Days #1 tab.ds.pk 02/12/19 Unknown Rx DOSEPAK (21 tabs)] Benzonatate [Tessalon Perles] 100 mg PO Q8HR #10 capsule 06/07/19 Unknown Rx DOXYCYCLINE Hyclate [Vibramycin 100 mg PO Q12HR #14 capsule 06/07/19 Unknown Rx CAP] Fluticasone [Flonase] 1 spray NS QDAY #1 bottle 06/07/19 Unknown Rx predniSONE [Deltasone] 20 mg PO QDAY #5 tab 06/07/19 Unknown Rx Nitrofurantoin Mcduffie/M-Cryst 100 mg PO Q12HR 7 Days #14 capsule 08/10/19 Unknown Rx [Macrobid CAP] traMADoL [Ultram] 50 mg PO Q6HR PRN #12 tablet 08/10/19 Unknown Rx ED Physical Exam - General Limitations: No Limitations General appearance: alert, in no apparent distress - Head Head exam: Present: atraumatic, normocephalic - Eye Eye exam: Present: normal appearance, PERRL, EOMI Pupils: Present: normal accommodation - ENT ENT exam: Present: mucous membranes moist - Neck Neck exam: Present: normal inspection, full ROM. Absent: tenderness - Expanded Neck Exam Expanded Neck exam: Absent: tenderness, midline deformity, anterior neck swelling, carotid bruit - Respiratory Respiratory exam: Present: normal lung sounds bilaterally. Absent: respiratory distress, wheezes, stridor, chest wall tenderness - Cardiovascular Cardiovascular Exam: Present: regular rate, normal rhythm, normal heart sounds. Absent: systolic murmur, diastolic murmur, rubs, gallop - GI/Abdominal GI/Abdominal exam: Present: soft, normal bowel sounds. Absent: tenderness, bruit, hernia - Extremities Exam Extremities exam: Present: normal inspection, full ROM. Absent: tenderness - Back Exam Back exam: Present: full ROM, tenderness (no posterior vertebral point tenderness, mild paraspinus muscle pain to deep palpation, no swelling no crepitus no deformity ), CVA tenderness (L), muscle spasm, paraspinal tenderness. Absent: CVA tenderness (R), vertebral tenderness - Expanded Back Exam Expanded Back exam: Absent: saddle anesthesia Back exam: Positive Straight Leg Raise: Left, Right - Neurological Exam Neurological exam: Present: alert, oriented X3, CN II-XII intact, normal gait, reflexes normal. Absent: motor sensory deficit - Expanded Neurological Exam Expanded Patient oriented to: Present: person, place, time Motor strength exam: RUE: 5, LUE: 5, RLE: 5, LLE: 5 Best Eye Response ([place]): (4) open spontaneously Best Motor Response (Subhash): (6) obeys commands Best Verbal Response (Subhash): (5) oriented Subhash Total: 15 - Psychiatric Psychiatric exam: Present: normal affect, normal mood - Skin Skin exam: Present: warm, dry, intact, normal color. Absent: rash ED Course Vital Signs 08/09/19 08/09/19 18:51 23:30 Temperature 97.7 F Pulse Rate 117 H Respiratory 20 20 Rate Blood Pressure 104/61 O2 Sat by Pulse 99 Oximetry ED Medical Decision Making - Lab Data Labs 08/09/19 19:00 Urine Color Yellow Urine Turbidity Slightly-cloudy Urine pH 5.0 Ur Specific [place] 1.028 Urine Protein <15 mg/dl Urine Glucose (UA) Neg Urine Ketones Neg Urine Blood Neg Urine Nitrite Neg Urine Bilirubin Neg Urine Urobilinogen 2.0 Ur Leukocyte Esterase Neg Urine WBC (Auto) 7.0 H Urine RBC (Auto) 6.0 U Epithel Cells (Auto) 7.0 Urine Mucus 3+ Urine HCG, Qual Negative - Medical Decision Making UA noted positive for leukocytes normal white blood cells plan treat for UTI NSAIDs muscle relaxants follow-up with PCP in 2 to 3 days. Patient denies dysuria, frequency, urgency, and no hematuria. patient verbalizes agreement and understanding with discharge plan will be DC'd home in stable condition at this time Critical care attestation.: If time is entered above; I have spent that time in minutes in the direct care of this critically ill patient, excluding procedure time. ED Disposition Clinical Impression: Lumbar strain Qualifiers: Encounter type: initial encounter Qualified Code(s): S39.012A - Strain of muscle, fascia and tendon of lower back, initial encounter UTI (urinary tract infection) Qualifiers: Urinary tract infection type: acute cystitis Hematuria presence: without hematuria Qualified Code(s): N30.00 - Acute cystitis without hematuria Disposition: DC-01 TO HOME OR SELFCARE Is pt being admited?: No Does the pt Need Aspirin: No Condition: Stable Prescriptions: Nitrofurantoin Mcduffie/M-Cryst [Macrobid CAP] 100 mg PO Q12HR 7 Days #14 capsule traMADoL [Ultram] 50 mg PO Q6HR PRN #12 tablet PRN Reason: Pain Referrals: PRIMARY CARE, [Primary Care Provider] - 3-5 Days Forms: Work/School Release Form(ED) Time of Disposition: 00:22
== END 2019-08-10 00:36 | disposition home or self-care (01) ==
LOC: ED 18:21
DX: S39.012A Strain of muscle, fascia and tendon of lower back, initial encounter (principal); Z79.899 Other long term (current) drug therapy; Z91.012 Allergy to eggs; Z91.010 Allergy to peanuts; X58.XXXA Exposure to other specified factors, initial encounter; Y93.89 Activity, other specified; Y92.89 Other specified places as the place of occurrence of the external cause; Y99.8 Other external cause status
CPT/HCPCS: 81001; 81025; 96372; 99283; J1100; J1885